=== PATIENT | male | born 1970 | race Caucasian/White ===

== ENCOUNTER 2020-11-12 11:12 | Emergency (ER) | payer MEDICARE, MEDICAID ==
[~2020-11-12] VITALS: Ht 175.3 cm; Wt 84.1 kg
[~2020-11-12 11:12] MED LIST: CEPH-585 PO
[2020-11-12 11:14] VITALS: BP 129/83
--- NOTE | 2020-11-12 13:23 | NUR ---
PT C/O RIGHT SHOULDER PAIN
[2020-11-12] MEDS ORDERED: CYCL-1 PO (13:31)
[2020-11-12] MEDS ORDERED: IBUP-1985 PO (13:31)
== END 2020-11-12 13:53 | disposition home or self-care (01) ==
LOC: ER 11:13
DX: S46.911A Strain of unspecified muscle, fascia and tendon at shoulder and upper arm level, right arm, initial encounter (principal); G89.29 Other chronic pain; F12.90 Cannabis use, unspecified, uncomplicated; Z79.2 Long term (current) use of antibiotics; Z79.899 Other long term (current) drug therapy; W22.8XXA Striking against or struck by other objects, initial encounter; Y93.89 Activity, other specified; Y92.89 Other specified places as the place of occurrence of the external cause; Y99.8 Other external cause status
CPT/HCPCS: 73030; 99283

== ENCOUNTER 2022-11-16 22:09 | Emergency (ER) | payer MEDICARE, MEDICAID ==
[~2022-11-16] VITALS: Ht 175.3 cm; Wt 84.0 kg
[~2022-11-16 22:09] MED LIST changes: -CEPH-585 PO; +CYCL-1 PO; +IBUP-1985 PO
[2022-11-16 22:13] VITALS: BP 148/88; PULSE 97; RESP 18; TEMP 98.7; O2SAT 97
== END 2022-11-16 23:16 | disposition left against medical advice (07) ==
LOC: ER 22:09
DX: R07.0 Pain in throat (principal); Z53.21 Procedure and treatment not carried out due to patient leaving prior to being seen by health care provider
CPT/HCPCS: 99281